=== PATIENT | female | born 1975 | race Caucasian/White ===

== ENCOUNTER 2022-02-02 14:19 | Emergency (ER) | payer OTHER, SELFPAY ==
[2022-02-02 15:02] VITALS: BP 137/80; PULSE 99; RESP 16; TEMP 36.3; O2SAT 97; BMI 39.4
[2022-02-02 15:45] LABS: Alanine Aminotransferase 17 IU/L (<35)
[2022-02-02] MEDS: TET,DIPH,PERTUSS(ACELL),VAC/PF 0.5 ML SYRINGE IM (18:10)
--- NOTE | 2022-02-02 18:16 | ED.GENADULT ---
HPI - General Adult General Chief complaint: Blood/Body fluid exposure Stated complaint: Needle stick at work Time Seen by Provider: 02/02/22 14:26 Source: patient Mode of arrival: Family Vehicle Limitations: no limitations History of Present Illness HPI narrative: This is a 46-year-old female with history of prior hepatitis-B infection who is unvaccinated for hepatitis-B. Patient is unsure of her tetanus status. 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 She states there is no obvious blood initially. She did wash it but there does appear to be a puncture wil. The needle was used to inject lidocaine and a person's mouth and dental office. Patient is in their 20s she does have a history of anemia but no other medical history is known. Patient was contacted by the office to present for source testing but has not been seen here today. Patient herself denies any other major medical issues. No tobacco, occasional alcohol, no illicit. Related Data Allergies Allergy/AdvReac Type Severity Reaction Status Date / Time bacitracin Allergy Rash Verified 02/02/22 15:01 [From Neosporin ([id number])] neomycin Allergy Rash Verified 02/02/22 15:01 [From Neosporin ([id number])] polymyxin B Allergy Rash Verified 02/02/22 15:01 [From Neosporin ([id number])] Review of Systems Review of Systems ROS Unobtainable: All systems reviewed & are unremarkable except as noted in HPI and below Patient History Social History Smoking Status: Never smoker Smoking Status: Never smoker alcohol intake frequency: 0-2 drinks per day Substance Use Type: does not use Exam Narrative Exam Narrative: GENERAL: Alert and oriented x three, female in mild distress. HEENT: Head normocephalic, atraumatic, EOMI, pupils reactive, face symmetric, moist mucous membranes NECK: Supple, full range of motion EXTREMITIES: Normal range of motion, no clubbing or edema. Neurovascularly intact. Patient appears to have a small puncture in the home of her right hand at the metacarpophalangeal joint. NEUROLOGICAL: Cranial nerves II through XII grossly intact. Moving all extremities SKIN: Warm, dry, no petechiae, no rashes or lesions. Initial Vital Signs Initial Vital Signs: Vital Signs Temperature 97.3 F L 02/02/22 15:02 Pulse Rate 99 H 02/02/22 15:02 Respiratory Rate 16 02/02/22 15:02 Blood Pressure 137/80 02/02/22 15:02 Pulse Oximetry 97 02/02/22 15:02 Course Orders Ordered: Discontinued Medications Diphtheria/Tetanus/Acell Pertussis (Tet,Diph,Pertuss(Acell),Vac/Pf 0.5 Ml Syringe) 0.5 ml IM .ONCE ONE Stop: 02/02/22 17:41 Last Admin: 02/02/22 18:10 Dose: 0.5 ml Documented by: KEVIN Consultations Consultation #1: ID, Dr. Thomas. Recommends waiting for final testing. If antibody is negative she should be treated with hepatitis B vaccine, immunoglobulin. If antibody is positive would not necessarily need this. She would also recommend of source patient presents to get a HIV viral load as well as HIV test and usual source patient testing. Time: 16:48 Vital Signs Vital signs: Vital Signs - 8 hr 02/02/22 15:02 Temperature 97.3 F L Pulse Rate 99 H Respiratory Rate 16 Blood Pressure 137/80 Pulse Oximetry 97 Medical Decision Making Lab Data Labs: Lab Results 02/02/22 02/02/22 02/02/22 Range/Units 15:14 15:14 15:14 ALT 17 (<35) IU/L Hep Bs Antigen Negative (NEGATIVE) s/c Hep Bs Antibody Reactive (.) Hepatitis C Antibody Negative (NEGATIVE) s/c HIV 1&2 Ab/P24 Ag 4thGn Negative (NEGATIVE) MDM Narrative Medical decision making narrative: This is a 46-year-old female who presents for needlestick exposure. Patient is lower risk although there is a puncture wound to her hand. She states she has never had hepatitis B vaccination secondary to having a prior hepatitis infection and was told it was not required. She states her tetanus may or may not be up-to-date. Source patient has been contacted is supposed to present to the ER for source testing but has not at this point. Her situation was discussed with infectious disease they recommend waiting for patient's testing and if available source taste patient's testing and they have up to 48 hours to make final decision about antivirals. She would also wait for her hepatitis testing before making a final decision about hepatitis immune globulin. 02/03/22 Gladis: patient called regarding pending results. Patient reactive on Hbs antibody and negative for all other tests. Patient updated on source HIV status with consent from souce patient. She elects to wait on prophylaxis and follow up with L&I. Discussed serial testing and future treatment. Discharge Plan Departure Patient Disposition: Home Clinical Impression: Exposure to blood or body fluid Instructions: DI for Accidental Exposure to Body Fluids Activity Restrictions/Additional Instructions: Call in the morning to follow up your final results. Call [phone] and ask to speak with Dr. Griffith regarding your lab results. Hopefully the source individual will have come in for testing tonight and will help us make a final decision about your medications and treatment in the morning. I did talk to Infectious Disease today the recommendations are to wait for the final results of your testing. You have 2 days from initial blood exposure before having to choose about starting antivirals for HIV Please return at any time if any worsening symptoms signs of infection or other new or concerning symptoms. Referrals: Dominique Olivares FNP-C [Primary Care Provider] - Visit Report Forms: Patient Portal/API
[2022-02-02 18:28] LABS: HIV 1 & 2 Ab/Ag 4th Gen Combo NEGATIVE (NEGATIVE); Hep C Virus Ab w/Reflex Quant NEGATIVE s/c (NEGATIVE)
[2022-02-02 18:36] LABS: Hepatitis B Surface Antigen NEGATIVE s/c (NEGATIVE)
[2022-02-03 05:36] LABS: Hepatitis B Surf Ab Qualitativ Reactive (.)
== END 2022-02-02 19:24 | disposition home or self-care (01) ==
PROVIDERS: Emergency Provider Emergency Medicine; PCP Registered Nurse
DX: Z77.21 Contact with and (suspected) exposure to potentially hazardous body fluids (principal); Y99.0 Civilian activity done for income or pay; Z23 Encounter for immunization
CPT/HCPCS: 84460; 86706; 86803; 87340; 87389; 90471; 99283; 90715

== ENCOUNTER 2023-11-17 09:44 | Emergency (ER) | payer OTHER, SELFPAY ==
[2023-11-17 10:04] VITALS: BP 136/78; PULSE 87; RESP 16; TEMP 36.7; O2SAT 96; BMI 39.4
[2023-11-17 11:05] LABS: Alanine Aminotransferase 18 IU/L (<35)
[2023-11-17 11:35] LABS: Hepatitis B Surface Antigen NEGATIVE s/c (NEGATIVE)
--- NOTE | 2023-11-17 11:42 | ED.GENADULT ---
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 She was attempting to clean some of the instruments last night when she sustained a flipping machine operator her finger with a sharp surgical tool. It was not a needle. She immediately squeezed the area to induce bleeding and then washed thoroughly with soap and water. She reports there were two patients' tools in the mix, she thinks neither has risk factors for blood borne infection. Patient has a history of hepatitis-B antibody positive. Related Data Allergies Allergy/AdvReac Type Severity Reaction Status Date / Time bacitracin Allergy Rash Verified 11/17/23 10:06 [From Neosporin ([id number])] neomycin Allergy Rash Verified 11/17/23 10:06 [From Neosporin ([id number])] polymyxin B Allergy Rash Verified 11/17/23 10:06 [From Neosporin ([id number])] Review of Systems <Christiana Jay PA-C - Last Filed: 11/17/23 18:22> Review of Systems ROS Unobtainable: All systems reviewed & are unremarkable except as noted in HPI and below Patient History <Christiana Jay PA-C - Last Filed: 11/17/23 18:22> Social History Smoking Status: Never smoker Smoking Status: Never smoker alcohol intake frequency: 0-2 drinks per day Substance Use Type: does not use Exam <Christiana Jay PA-C - Last Filed: 11/17/23 18:22> Narrative Exam Narrative: GENERAL: 48 year old patient appears stated age. Well-developed patient, in no acute distress. NEURO: AOx3. HEAD: Atraumatic. Normocephalic. EYES: Pupils equal round and reactive. Extraocular motions intact. No scleral icterus. No injection or drainage. RESPIRATORY: No distress SKIN: No rash or erythema of visible areas Initial Vital Signs Initial Vital Signs: Vital Signs Temperature 98.1 F 11/17/23 10:04 Pulse Rate 87 11/17/23 10:04 Respiratory Rate 16 11/17/23 10:04 Blood Pressure 136/78 11/17/23 10:04 Pulse Oximetry 96 11/17/23 10:04 Oxygen Delivery Method Room Air 11/17/23 10:04 <Ade Leo MD - Last Filed: 11/18/23 07:54> Initial Vital Signs Initial Vital Signs: Vital Signs Temperature 98.1 F 11/17/23 10:04 Pulse Rate 87 11/17/23 10:04 Respiratory Rate 16 11/17/23 10:04 Blood Pressure 136/78 11/17/23 10:04 Pulse Oximetry 96 11/17/23 10:04 Oxygen Delivery Method Room Air 11/17/23 10:04 Course <Christiana Jay PA-C - Last Filed: 11/17/23 18:22> Vital Signs Vital signs: Vital Signs - 8 hr 11/17/23 11:50 Temperature 98.3 F Pulse Rate 77 Respiratory Rate 18 Blood Pressure 136/65 Pulse Oximetry 98 Oxygen Delivery Method Room Air <Ade Leo MD - Last Filed: 11/18/23 07:54> Vital Signs Vital signs: Vital Signs - 8 hr 11/17/23 11:50 Temperature 98.3 F Pulse Rate 77 Respiratory Rate 18 Blood Pressure 136/65 Pulse Oximetry 98 Oxygen Delivery Method Room Air Medical Decision Making <Christiana Jay PA-C - Last Filed: 11/17/23 18:22> Lab Data Labs: Lab Results 11/17/23 Range/Units 10:34 ALT 18 (<35) IU/L Hep Bs Antigen Negative (NEGATIVE) s/c Hepatitis C Antibody Negative (NEGATIVE) s/c HIV 1&2 Ab/P24 Ag 4thGn Negative (NEGATIVE) MDM Narrative Medical decision making narrative: Multiple etiologies for patient's symptoms considered including, but not limited to: Body fluid exposure at work. Patient had a low risk body fluid exposure at work and appropriately encouraged the site to bleed in the wash with soap and water. We discussed risk stratification. I offered HIV post exposure prophylaxis, which she declined. Her testing today is negative for hepatitis-B surface antigen, hepatitis-C antibody, HIV 1 and 2. The hepatitis-B surface antibody is still pending. Patient was given instructions on how to create a log in so she can see the results and how to follow-up. Patient's symptoms improved over duration of stay with above-stated therapies. Findings and discharge diagnosis discussed with patient/family followed by verbalization of understanding Return precautions discussed with patient/family whom verbalize understanding of diagnosis and plan <Ade Leo MD - Last Filed: 11/18/23 07:54> Lab Data Labs: Lab Results 11/17/23 Range/Units 10:34 ALT 18 (<35) IU/L Hep Bs Antigen Negative (NEGATIVE) s/c Hepatitis C Antibody Negative (NEGATIVE) s/c HIV 1&2 Ab/P24 Ag 4thGn Negative (NEGATIVE) Discharge Plan Departure Patient Disposition: Home Clinical Impression: Exposure to blood or body fluid Instructions: DI for Accidental Exposure to Body Fluids Activity Restrictions/Additional Instructions: *You have been diagnosed with body fluid exposure. You can create a log into the [facility] portal to get your lab results from today and you will need repeat testing. Per our discussion, you do not want to pursue HIV post-exposure prophylaxis at this time. - You should have repeat HIV testing with an antibody-antigen test should be performed at six weeks and four months post-exposure. If a test that only measures antibody is used, repeat HIV testing should occur at six weeks, three months, and six months following exposure.? - You should have Hepatitis C testing 4 to 6 months after the exposure: anti-HCV testing is suitable for evaluating the HCV status at this time point, with follow up nucleic acid testing for HCV RNA testing if positive. Anti-HCV seroconversion typically occurs 8 to 11 weeks after exposure. *What to do: *Please continue to take your regular medications as directed. [ ] New medication prescriptions sent to your pharmacy: [ ] [ ] New medication written as a paper prescription [x] No new medications given *Please follow up with your primary care provider in 2-3 days, call for an appointment. Let them know you were seen in the Emergency Department and that we ask that you be seen in follow up. We will electronically transmit a record of today's note if your PCP is in our system *If you do not have a primary care provider please contact the [facility] Resource line at [phone]. They will ask some questions about your medical history and help get you set up with a doctor in the community. *Return to Emergency Department if you should have any new, worsening or concerning symptoms, such as [fever greater than 101 F, shaking chills, worsening pain, persistent vomiting or other concerning symptoms]. Referrals: Dominique Olivares FNP-C [Primary Care Provider] - Stand Alone Forms: Patient Portal/API ED Sign-out <Ade Leo MD - Last Filed: 11/18/23 07:54> Cosign ED Attending Edison Attestation: I was immediately available in the department for consultation throughout this patient's visit. Ade Leo MD
[2023-11-17 11:50] VITALS: BP 136/65; PULSE 77; RESP 18; TEMP 36.8; O2SAT 98
[2023-11-17 11:52] LABS: HIV 1 & 2 Ab/Ag 4th Gen Combo NEGATIVE (NEGATIVE); Hep C Virus Ab w/Reflex Quant NEGATIVE s/c (NEGATIVE)
[2023-11-19 07:36] LABS: Hepatitis B Surf Ab Qualitativ Reactive (.)
== END 2023-11-17 11:50 | disposition home or self-care (01) ==
PROVIDERS: Emergency Medicine; Emergency Provider Physician Assistant; PCP Registered Nurse
DX: Z77.21 Contact with and (suspected) exposure to potentially hazardous body fluids (principal); Y99.0 Civilian activity done for income or pay; Y92.531 Health care provider office as the place of occurrence of the external cause
CPT/HCPCS: 36415; 84460; 86706; 86803; 87340; 87389; 99283

== ENCOUNTER 2024-06-08 13:22 | Emergency (ER) | payer OTHER, SELFPAY ==
[2024-06-08 13:28] VITALS: BP 147/80; PULSE 92; RESP 16; TEMP 37.1; O2SAT 96; BMI 39.4
[2024-06-08 14:24] LABS: Alanine Aminotransferase 15 IU/L (<35)
--- NOTE | 2024-06-08 14:30 | ED.GENADULT ---
HPI - General Adult <Lilliana Burton PA-C - Last Filed: 06/08/24 14:46> General Chief complaint: Blood/Body fluid exposure Stated complaint: needlestick injury Time Seen by Provider: 06/08/24 14:12 Source: patient Mode of arrival: Ambulatory History of Present Illness HPI narrative: Patient is a pleasant 49-year-old female presents to the emergency room department for post exposure workup. 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 She has presented to the emergency room department for post exposure lab work. The patient has already been contacted, and has been made aware and will get labs drawn. Currently at this time the patient states that this is the 3rd time this has happened. Most recent exposure due to being stuck by a dirty equipment was several months ago. Patient has chosen not to have any type of preventative medications prescribed here in the emergency department. She is going to wait until she gets the results from the patient. At that time depending on what the results are to make a decision on whether she wants to have medications or not. She has no other further complaints. She is mildly under the weather with upper respiratory symptoms. Related Data Allergies Allergy/AdvReac Type Severity Reaction Status Date / Time bacitracin Allergy Rash Verified 11/17/23 10:06 [From Neosporin ([id number])] neomycin Allergy Rash Verified 11/17/23 10:06 [From Neosporin ([id number])] polymyxin B Allergy Rash Verified 11/17/23 10:06 [From Neosporin ([id number])] Review of Systems <Lilliana Burton PA-C - Last Filed: 06/08/24 14:46> Review of Systems Narrative: Negative except as above Musculoskeletal Comments: Patient here for fingerstick at work right thumb, patient says she washed and bled the thumb and milk the thumb after the initial instrument stick. Patient History <Lilliana Burton PA-C - Last Filed: 06/08/24 14:46> Social History Smoking Status: Never smoker Smoking Status: Never smoker alcohol intake frequency: other Substance Use Type: does not use Exam <Lilliana Burton PA-C - Last Filed: 06/08/24 14:46> Initial Vital Signs Initial Vital Signs: Vital Signs Temperature 98.8 F 06/08/24 13:28 Pulse Rate 92 H 06/08/24 13:28 Respiratory Rate 16 06/08/24 13:28 Blood Pressure 147/80 H 06/08/24 13:28 Pulse Oximetry 96 06/08/24 13:28 Oxygen Delivery Method Room Air 06/08/24 13:28 Const Other: Alert oriented no acute distress resting in the chair comfortably Eyes Other: Pupils are PERRLA, EOMs are intact Skin Other: Evaluation of the patient's right thumb does not show any type of bleeding, unable to show or see any type of wil on the thumb where the equipment and exposure and needlestick happened. Neuro Other: Cranial nerves are grossly intact, cognition speech, gait is all within normal limits Extrem Other: Range of motion, strength, pulses, cap refill preserved in the upper and lower extremities. Right hand examined. I am unable to appreciate any area on the right thumb that is noticeable for a needlestick. There was no bleeding. There was no soft tissue swelling. There is bruising that is noted. Psych Other: Cranial nerves are all intact, appearance, mental status, speech, mood, affect, attitude, process, thought content and judgment are normal. <Emmanuel Chen MD - Last Filed: 06/08/24 22:05> Initial Vital Signs Initial Vital Signs: Vital Signs Temperature 98.8 F 06/08/24 13:28 Pulse Rate 92 H 06/08/24 13:28 Respiratory Rate 16 06/08/24 13:28 Blood Pressure 147/80 H 06/08/24 13:28 Pulse Oximetry 96 06/08/24 13:28 Oxygen Delivery Method Room Air 06/08/24 13:28 Scores <Lilliana Burton PA-C - Last Filed: 06/08/24 14:46> GCS Citation: 15 Course <Lilliana Burton PA-C - Last Filed: 06/08/24 14:46> Vital Signs Vital signs: Vital Signs - 8 hr 06/08/24 14:53 Pulse Rate 95 H Respiratory Rate 14 Blood Pressure 149/75 H Pulse Oximetry 96 Oxygen Delivery Method Room Air <Emmanuel Chen MD - Last Filed: 06/08/24 22:05> Vital Signs Vital signs: Vital Signs - 8 hr 06/08/24 14:53 Pulse Rate 95 H Respiratory Rate 14 Blood Pressure 149/75 H Pulse Oximetry 96 Oxygen Delivery Method Room Air Medical Decision Making <Lilliana Burton PA-C - Last Filed: 06/08/24 14:46> Lab Data Labs: Lab Results 06/08/24 Range/Units 13:55 ALT 15 (<35) IU/L Hep Bs Antigen Negative (NEGATIVE) s/c Hepatitis C Antibody Negative (NEGATIVE) s/c HIV 1&2 Ab/P24 Ag 4thGn Negative (NEGATIVE) MDM Narrative Medical decision making narrative: 49-year-old female here after unfortunately sticking her right thumb with used dental equipment at her dental clinic. Here for post exposure labs. Patient has decided to wait on any post exposure medications. Last needlestick that she had in her left thumb was 3 months ago. Patient has decided she is going to wait for the patient to get his labs drawn and see if anything comes back positive before she decides on any post exposure medications. Currently at this time the patient states that she cleaned the hand wash the hand milked the thumb. Currently has no other physical complaints. Patient will be discharged. I will call her with the results. Differential diagnosis L and I paperwork, post exposure labs. <Emmanuel Chen MD - Last Filed: 06/08/24 22:05> Lab Data Labs: Lab Results 06/08/24 Range/Units 13:55 ALT 15 (<35) IU/L Hep Bs Antigen Negative (NEGATIVE) s/c Hepatitis C Antibody Negative (NEGATIVE) s/c HIV 1&2 Ab/P24 Ag 4thGn Negative (NEGATIVE) Discharge Plan Departure Patient Disposition: Home Clinical Impression: Needlestick injury accident with exposure to body fluid Instructions: DI for Accidental Exposure to Body Fluids Activity Restrictions/Additional Instructions: Please follow-up onto the patient's labs, we will be advised of your labs as well. We will call you with the results Referrals: Dominique Olivares FNP-C [Primary Care Provider] - Stand Alone Forms: Patient Portal/API ED Sign-out <Emmanuel Chen MD - Last Filed: 06/08/24 22:05> Cosign ED Attending Edison Attestation: I was immediately available in the department for consultation. This documentation has been reviewed and I agree with assessment and plan. Supervised by Emmanuel Chen MD
--- NOTE | 2024-06-08 14:44 | PC.NURSE ---
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 She does not know if the tool was cannulated or solid or what size it was.
[2024-06-08 14:53] VITALS: BP 149/75; PULSE 95; RESP 14; O2SAT 96
[2024-06-08 15:25] LABS: Hepatitis B Surface Antigen NEGATIVE s/c (NEGATIVE)
[2024-06-08 15:30] LABS: HIV 1 & 2 Ab/Ag 4th Gen Combo NEGATIVE (NEGATIVE); Hep C Virus Ab w/Reflex Quant NEGATIVE s/c (NEGATIVE)
[2024-06-12 06:39] LABS: Hepatitis B Surf Ab Qualitativ Reactive (.)
== END 2024-06-08 14:54 | disposition home or self-care (01) ==
PROVIDERS: Emergency Medicine; Emergency Provider Physician Assistant; PCP Registered Nurse
DX: Z77.21 Contact with and (suspected) exposure to potentially hazardous body fluids (principal); W46.1XXA Contact with contaminated hypodermic needle, initial encounter
CPT/HCPCS: 36415; 84460; 86706; 86803; 87340; 87389; 99281; 99283